=== PATIENT | male | born 1980 | race African-American/Black ===

== ENCOUNTER 2017-06-24 05:57 | Emergency (ER) | payer OTHER ==
[~2017-06-24] VITALS: Ht 188 cm; Wt 73.9 kg
[~2017-06-24 05:57] MED LIST: BACTRIM DS TAB1 EACH PO; NOHOMEMEDICATIONS; ULTRAM 50MG TAB50 MG PO; ZPAK PO
[2017-06-24] MEDS ORDERED: MOBIC15 MG PO (06:30)
[2017-06-24] MEDS ORDERED: MIRALAX17 GM PO (06:30)
[2017-06-24] MEDS ORDERED: PREPARATION H O28 GM RECTAL (06:30)
== END 2017-06-24 06:50 | disposition home or self-care (01) ==
LOC: ER 05:57
DX: K64.4 Residual hemorrhoidal skin tags (principal); Z88.0 Allergy status to penicillin; Z87.891 Personal history of nicotine dependence

== ENCOUNTER 2017-07-05 05:15 | Emergency (ER) | payer OTHER ==
[~2017-07-05] VITALS: Ht 188 cm; Wt 73.9 kg
[~2017-07-05 05:15] MED LIST changes: +MIRALAX17 GM PO; +MOBIC15 MG PO; +PREPARATION H O28 GM RECTAL
[2017-07-05 05:58] LABS: ABSOLUTE NEUTROPHILS 4.2 thou/uL (1.4-8.2); BASOPHILS 0.9 % (0.0-2.0); EOSINOPHILS 1.7 % (0.0-3.0); HEMATOCRIT 39.9 % (42.0-52.0); HEMOGLOBIN 13.4 gm/dL (14.0-18.0); LYMPHOCYTES 31.3 % (24.0-44.0); MCH 33.4 pg (26.0-34.0); MCHC 33.6 g/dL (28.0-37.0); MCV 99.5 fL (80.0-100.0); MONOCYTES 10.5 % (1.0-8.0); PLATELET COUNT 326 thou/uL (150-400); POLYS 55.6 % (36.0-66.0); RDW 12.5 % (10.5-14.5); WBC 7.6 thou/uL (4.0-11.0)
[2017-07-05 06:04] LABS: CALCIUM 8.9 mg/dL (8.5-10.1); CREATININE 0.9 mg/dL (0.7-1.3); POTASSIUM 4.3 mmol/L (3.5-5.1)
[2017-07-05] MEDS ORDERED: MOBIC15 MG PO (06:15)
== END 2017-07-05 06:39 | disposition home or self-care (01) ==
LOC: ER 05:15
PROVIDERS: Emergency Medicine
DX: R25.2 Cramp and spasm (principal); F10.99 Alcohol use, unspecified with unspecified alcohol-induced disorder; Z88.0 Allergy status to penicillin; Z87.891 Personal history of nicotine dependence; Z95.5 Presence of coronary angioplasty implant and graft

== ENCOUNTER 2019-01-18 04:08 | Emergency (ER) | payer BC ==
[~2019-01-18] VITALS: Ht 182.9 cm; Wt 77.1 kg
[2019-01-18 05:17] LABS: URINE BILIRUBIN 1+ (Negative); URINE BLOOD NEGATIVE (Negative); URINE CLARITY CLEAR; URINE COLOR YELLOW; URINE GLUCOSE-RANDOM* NEGATIVE (Negative); URINE KETONES NEGATIVE (Negative); URINE LEUKOCYTES-REFLEX NEGATIVE (Negative); URINE NITRITE-REFLEX NEGATIVE (Negative); URINE PROTEIN (DIPSTICK) TRACE (Negative); URINE SPECIFIC GRAVITY >= 1.030 (1.005-1.035); URINE UROBILINOGEN 0.2 E.U./dl (0.2-1.0)
[2019-01-18 06:10] VITALS: BP 147/87
== END 2019-01-18 06:11 | disposition home or self-care (01) ==
LOC: ER 04:08
PROVIDERS: Emergency Medicine
DX: Z11.3 Encounter for screening for infections with a predominantly sexual mode of transmission (principal); Z87.891 Personal history of nicotine dependence; Z88.0 Allergy status to penicillin

== ENCOUNTER 2019-08-18 14:56 | Emergency (ER) | payer BC ==
[~2019-08-18] VITALS: Ht 188 cm; Wt 74.8 kg
[2019-08-18 15:04] VITALS: BP 128/68
[2019-08-18 15:29] LABS: URINE BILIRUBIN NEGATIVE (Negative); URINE BLOOD TRACE (Negative); URINE CLARITY CLEAR; URINE COLOR YELLOW; URINE GLUCOSE-RANDOM* NEGATIVE (Negative); URINE KETONES NEGATIVE (Negative); URINE NITRITE-REFLEX NEGATIVE (Negative); URINE PROTEIN (DIPSTICK) NEGATIVE (Negative); URINE SPECIFIC GRAVITY 1.025 (1.005-1.035)
[2019-08-18 15:32] LABS: URINE LEUKOCYTES-REFLEX 1+ (Negative)
[2019-08-18 15:35] LABS: BACTERIA-REFLEX 1-9 Few /HPF (None Seen); CASTS None Seen /LPF (None Seen); CRYSTALS None Seen /LPF (None Seen); SQUAMOUS None Seen /LPF (0-3); URINE RBC 0-2 Rare /HPF (0-2)
[2019-08-18] MEDS ORDERED: DOXYCYCLINE 10100 MG PO (15:39)
== END 2019-08-18 15:47 | disposition home or self-care (01) ==
LOC: ER 14:56
PROVIDERS: Nurse Practitioner Family
DX: N34.2 Other urethritis (principal); Z88.0 Allergy status to penicillin; Z95.5 Presence of coronary angioplasty implant and graft; Z87.891 Personal history of nicotine dependence